=== PATIENT | male | born 2000 | race Caucasian/White ===

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

== ENCOUNTER 2023-12-02 00:24 | Emergency (ER) | payer SELFPAY ==
[2023-12-02 00:32] VITALS: PULSE 108; BMI 23.1
[2023-12-02 01:03] LABS: EOS % 0.9 % (0-4.5); HEMOGLOBIN 16.1 GM/dL (11.7-16.9); LYMPH % 39.5 % (8-40); MEAN PLT VOLUME 8.4 fl (7.5-11.1); WHITE BLOOD COUNT 7.6 K/mm3 (4.0-10.0)
[2023-12-02 01:06] LABS: BASO % 0.5 % (0-2.0); HEMATOCRIT 46.4 % (35.4-49); MCH 31.9 pg (25.7-33.7); MCHC 34.7 g/dl (32.0-35.9); MEAN CELL VOLUME 91.9 fl (80-96); MONO % 4.4 % (3.8-10.2); NEUT % 54.7 % (42.8-82.8); PLATELET COUNT 193 10^3/uL (134-434); RBC 5.04 M/mm3 (4.00-5.60); RDW 14.2 % (11.9-15.9)
[2023-12-02] MEDS: LACTATED RINGERS SOLUTION 1000 ML INFUS.BAG IV ONE (01:08)
[2023-12-02 01:21] LABS: POTASSIUM 3.8 mmol/L (3.5-5.1)
[2023-12-02 01:22] LABS: VENOUS BASE EXCESS -1.9 mmol/L (-2-2); VENOUS O2 SATURATION 91.4 % (70-80); VENOUS PCO2 42.6 mmHg (38-52); VENOUS PH 7.36 (7.310-7.410)
[2023-12-02 01:23] LABS: CALCIUM 8.9 mg/dL (8.5-10.1)
[2023-12-02 01:24] LABS: ALBUMIN 4.5 g/dl (3.4-5.0); BLOOD UREA NITROGEN 17.4 mg/dL (7-18); MAGNESIUM 2.4 mg/dL (1.8-2.4)
[2023-12-02 01:27] LABS: CREATININE 0.9 mg/dL (0.55-1.3)
[2023-12-02 01:28] LABS: BILIRUBIN,TOTAL 0.5 mg/dL (0.2-1); TOT PROT 7.8 g/dl (6.4-8.2)
[2023-12-02 02:50] LABS: COCAINE, UR NEGATIVE (NEGATIVE); METHADONE, UR NEGATIVE (NEGATIVE); URINE BENZODIAZEPINES NEGATIVE (NEGATIVE)
[2023-12-02 02:51] LABS: PHENCYCLIDINE,URINE NEGATIVE (NEGATIVE)
[2023-12-02 02:59] LABS: PH,URINE 5.5 (5.0-8.0); URINE APPEARANCE CLEAR; URINE BILIRUBIN NEGATIVE (NEGATIVE); URINE COLOR YELLOW; URINE GLUCOSE (UA) NEGATIVE (NEGATIVE); URINE KETONE NEGATIVE (NEGATIVE); URINE LEUK ESTERASE NEGATIVE (NEGATIVE); URINE NITRITE NEGATIVE (NEGATIVE); URINE PROTEIN NEGATIVE (NEGATIVE); URINE UROBILINOGEN 0.2 mg/dL (0.2-1.0)
[2023-12-02 03:15] LABS: OPIATES, URI NEGATIVE (NEGATIVE); URINE AMPHETAMINES NEGATIVE (NEGATIVE); URINE BARBITURATES NEGATIVE (NEGATIVE)
[2023-12-02 06:46] VITALS: BP 126/85; RESP 17; TEMP 97.6
== END 2023-12-02 07:45 | disposition home or self-care (01) ==
LOC: JER 00:24
DX: E07.9 Disorder of thyroid, unspecified (principal); F10.929 Alcohol use, unspecified with intoxication, unspecified; Y90.8 Blood alcohol level of 240 mg/100 ml or more; Z20.822 Contact with and (suspected) exposure to COVID-19
CPT/HCPCS: 0241U-QW; 36415; 70450-TC; 72125-TC; 80053; 80307; 81003; 82140; 82803; 82962; 83605; 83735; 84443; 84484; 85025; 87086; 93005; 93010; 99285-25